=== PATIENT | female | born 1965 | race Caucasian/White ===

== ENCOUNTER → 2017-06-24 | Outpatient (REF) | payer OTHER ==
[~2017-06-24] MED LIST: MULTCAP PO; [UNRECOGNIZED DRUG - CODE] PO
[2017-06-24 18:17] LABS: VITAMIN B12 LEVEL 260 PG/ML
[2017-06-24 18:21] LABS: FOLATE > 24.0 NG/ML
== END ==
LOC: M LAB REF 16:25
PROVIDERS: ATTEND Internal Medicine
DX: K58.8 Other irritable bowel syndrome (principal)

== ENCOUNTER 2017-10-01 09:27 | Day surgery (SDC) | payer OTHER ==
[~2017-10-01] VITALS: Ht 175.3 cm; Wt 63.5 kg
[2017-10-01] MEDS ORDERED: NS 1,000 ML IV ONE (10:00)
[2017-10-01] MEDS ORDERED: LIDOCAINE 2% INJ 100 MG/5 ML SDV (FOR ANES.) As Ordered ONE (10:23)
[2017-10-01] MEDS ORDERED: PROPOFOL 200 MG/20 ML VIAL As Ordered ONE (10:23)
--- NOTE | 2017-10-01 11:41 | ROOR ---
Patient Name: Nilda Lara Procedure Date: 10/01/2017 11:02 AM Date of : 1965 Age: 52 Room: [facility] Gender: Female Note Status: Finalized Procedure: Colonoscopy Indications: Screening for colorectal malignant neoplasm Providers: Rodriguez Goetz MD Referring MD: Phoebe MCDONNELL MD Requesting Provider: Medicines: Monitored Anesthesia Care Complications: No immediate complications. Procedure: Pre-Anesthesia Assessment: - Prior to the procedure, a History and Physical was performed, and patient medications and allergies were reviewed. The patient is competent. The risks and benefits of the procedure and the sedation options and risks were discussed with the patient. All questions were answered and informed consent was obtained. Patient identification and proposed procedure were verified by the physician, the nurse and the building attendant in the procedure room. Mental Status Examination: normal. Airway Examination: normal oropharyngeal airway and neck mobility. Respiratory Examination: clear to auscultation. CV Examination: normal. Prophylactic Antibiotics: The patient does not require prophylactic antibiotics. Prior Anticoagulants: The patient has taken no previous anticoagulant or antiplatelet agents. ASA Grade Assessment: II - A patient with mild systemic disease. After reviewing the risks and benefits, the patient was deemed in satisfactory condition to undergo the procedure. The anesthesia plan was to use monitored anesthesia care (MAC). Immediately prior to administration of medications, the patient was re-assessed for adequacy to receive sedatives. The heart rate, respiratory rate, oxygen saturations, blood pressure, adequacy of pulmonary ventilation, and response to care were monitored throughout the procedure. The physical status of the patient was re-assessed after the procedure. The Colonoscope was introduced through the anus and advanced to the terminal ileum, with identification of the appendiceal orifice and IC valve. The colonoscopy was technically difficult and complex due to a redundant colon. Successful completion of the procedure was aided by using manual pressure. The patient tolerated the procedure well. The quality of the bowel preparation was good. The terminal ileum, ileocecal valve, appendiceal orifice, and rectum were photographed. Scope insertion time was 8 minutes. Scope withdrawal time was 10 minutes. The total duration of the procedure was 20 minutes. Findings: The perianal and digital rectal examinations were normal. The terminal ileum appeared normal. The colon (entire examined portion) was moderately tortuous. The entire examined colon appeared normal on direct and retroflexion views. Impression: - The examined portion of the ileum was normal. - Tortuous colon. - The entire examined colon is normal on direct and retroflexion views. - No specimens collected. Recommendation: - Patient has a contact number available for emergencies. The signs and symptoms of potential delayed complications were discussed with the patient. Return to normal activities tomorrow. Written discharge instructions were provided to the patient. - Resume previous diet. - Continue present medications. - Repeat colonoscopy in 10 years for screening purposes. - Return to GI clinic in 10 years. - Return to primary care physician. Rodriguez Goetz MD Rodriguez Goetz MD 10/01/2017 11:41:07 AM This report has been signed electronically. Number of Addenda: 0 Note Initiated On: 10/01/2017 11:02 AM Estimated Blood Loss: Estimated blood loss: none.
[2017-10-01 11:45] VITALS: BP 109/64
== END 2017-10-01 12:00 | disposition home or self-care (01) ==
LOC: M OPP 09:27 → EDSTATUS 10:40 → M OPP 12:00
PROVIDERS: ATTEND Internal Medicine Gastroenterology
DX: Z12.11 Encounter for screening for malignant neoplasm of colon (principal); Q43.8 Other specified congenital malformations of intestine; I34.1 Nonrheumatic mitral (valve) prolapse; R01.1 Cardiac murmur, unspecified; K50.90 Crohn's disease, unspecified, without complications; Z78.0 Asymptomatic menopausal state; Z87.891 Personal history of nicotine dependence

== ENCOUNTER 2017-10-02 13:07 | Day surgery (SDC) | payer OTHER ==
[~2017-10-02] VITALS: Ht 175.3 cm; Wt 64.4 kg
[2017-10-02] MEDS ORDERED: MIDAZOLAM INJ 2 MG/2 ML VIAL (J2250) As Ordered ONE ×2 (14:50→15:04)
[2017-10-02] MEDS ORDERED: LIDOCAINE VISCOUS 2% SOLN 15ML UDC As Ordered ONE (14:52)
[2017-10-02 15:45] VITALS: BP 121/60
[2017-10-02] MEDS ORDERED: D5W 1,000 ML IV SCH (16:15)
--- NOTE | 2017-10-03 09:59 | T-ECHO ---
DATE OF PROCEDURE: 10/02/2017 REFERRING PHYSICIAN: Dr. Jan Partida. 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 PRINCIPLE FINDINGS: Mitral valve prolapse of the anterior mitral leaflet with a small flail segment and associated severe mitral regurgitation. PROCEDURE PERFORMED: Transesophageal echocardiogram ([facility]). SURGEON: Dr. Jan Partida MD. JOURNEYMAN CARPENTER: None. ANESTHESIA: IV conscious sedation: Midazolam 4 mg IV. COMPLICATIONS: None. DESCRIPTION OF PROCEDURE: Rhythm was sinus. The patient received topical viscous lidocaine to gargle. She received a total of 4 mg midazolam IV for IV conscious sedation. The patient tolerated the procedure well without any immediate complications. Esophageal intubation was accomplished without difficulty using a Barba 2D phase array, multiplane transesophageal echocardiogram probe. The left atrium was large with a very large left atrial appendage. Pulmonary vein flow in the left upper pulmonary vein was normal and in particular, there was no systolic flow reversal in the left upper pulmonary vein by pulsed wave Doppler. 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 There was associated severe mitral regurgitation. Aortic valve with three-cuspid with mild focal thickening and focal calcific deposits. Mild aortic regurgitation was present. Tricuspid pulmonic valves are normal. Left ventricle appeared normal in size and systolic function. Right ventricle appeared normal in size and systolic function. Ventricular septum with no VSD by color flow Doppler. No pericardial effusion. Distal aortic arch and descending thoracic aorta appear normal. CONCLUSIONS: 1. 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 Severe mitral regurgitation. 2. Very large left atrium with very large left atrial appendage. No left atrium thrombi. 3. Normal left ventricle size and systolic function. [facility]
== END 2017-10-02 16:14 | disposition home or self-care (01) ==
LOC: M OPP 13:07
PROVIDERS: ATTEND Internal Medicine Cardiovascular Disease
DX: I34.0 Nonrheumatic mitral (valve) insufficiency (principal); I34.1 Nonrheumatic mitral (valve) prolapse; R00.8 Other abnormalities of heart beat; R94.31 Abnormal electrocardiogram [ECG] [EKG]; E07.9 Disorder of thyroid, unspecified; E78.2 Mixed hyperlipidemia
CPT/HCPCS: 93312; 93320; 93325; J2250

== ENCOUNTER → 2017-12-30 | Outpatient (REF) | payer OTHER ==
[2017-12-30 15:36] LABS: INR 1.15; PROTHROMBIN TIME 14.9 SECONDS (12.4-14.5)
== END ==
LOC: M LAB REF 15:14
DX: I05.1 Rheumatic mitral insufficiency (principal)

== ENCOUNTER → 2018-01-01 | Outpatient (REF) | payer OTHER ==
[2018-01-01 12:08] LABS: INR 1.04; PROTHROMBIN TIME 13.7 SECONDS (12.4-14.5)
== END ==
LOC: M LAB REF 11:51
DX: I34.1 Nonrheumatic mitral (valve) prolapse (principal)
CPT/HCPCS: 85610

== ENCOUNTER → 2018-01-08 | Outpatient (REF) | payer OTHER ==
[2018-01-08 11:45] LABS: INR 1.25; PROTHROMBIN TIME 15.9 SECONDS (12.4-14.5)
== END ==
LOC: M LABDRAW1 09:53
DX: Z51.81 Encounter for therapeutic drug level monitoring (principal); Z79.01 Long term (current) use of anticoagulants; Z95.2 Presence of prosthetic heart valve
CPT/HCPCS: 85610

== ENCOUNTER → 2018-01-15 | Outpatient (REF) | payer OTHER ==
[2018-01-15 12:42] LABS: INR 1.58; PROTHROMBIN TIME 19.3 SECONDS (12.4-14.5)
== END ==
LOC: M LABDRAW1 11:34
DX: Z51.81 Encounter for therapeutic drug level monitoring (principal); Z95.2 Presence of prosthetic heart valve; Z79.01 Long term (current) use of anticoagulants
CPT/HCPCS: 85610

== ENCOUNTER → 2018-01-20 | Outpatient (CLI) | payer OTHER ==
[2018-01-20 20:06] LABS: PROTHROMBIN TIME 21.4 SECONDS (12.4-14.5)
== END ==
LOC: M WUC 16:07
DX: Z95.2 Presence of prosthetic heart valve (principal); Z79.01 Long term (current) use of anticoagulants
CPT/HCPCS: 85610

== ENCOUNTER → 2018-02-04 | Outpatient (REF) | payer OTHER ==
[2018-02-04 17:59] LABS: INR 1.55
== END ==
LOC: M LAB REF 16:54
DX: Z95.2 Presence of prosthetic heart valve (principal); Z79.01 Long term (current) use of anticoagulants

== ENCOUNTER → 2018-02-19 | Outpatient (CLI) | payer OTHER ==
[2018-02-19 20:12] LABS: INR 1.65
== END ==
LOC: M WUC 17:04
DX: Z51.81 Encounter for therapeutic drug level monitoring (principal); Z79.01 Long term (current) use of anticoagulants; Z95.2 Presence of prosthetic heart valve
CPT/HCPCS: 85610

== ENCOUNTER → 2018-03-06 | Outpatient (REF) | payer OTHER ==
[2018-03-06 18:20] LABS: INR 2.12; PROTHROMBIN TIME 24.5 SECONDS (12.4-14.5)
== END ==
LOC: M LABDRAW1 15:35
DX: Z95.2 Presence of prosthetic heart valve (principal); Z79.01 Long term (current) use of anticoagulants

== ENCOUNTER → 2020-12-01 | Outpatient (CLI) | payer SELFPAY ==
[~2020-12-01] MED LIST changes: +D3 S1CAP3 PO; -[UNRECOGNIZED DRUG - CODE] PO
== END ==
LOC: M LABSMTC 14:08
PROVIDERS: ATTEND Pediatrics
DX: Z20.822 Contact with and (suspected) exposure to COVID-19 (principal)

== ENCOUNTER → 2024-10-21 | Outpatient (CLI) | payer OTHER | LOC: M CARPUL 09:35 | PROVIDERS: ATTEND Physician Assistant | DX: Z95.3 Presence of xenogenic heart valve (principal); I08.2 Rheumatic disorders of both aortic and tricuspid valves ==